=== PATIENT | female | born 1950 | race Two or more races ===

== ENCOUNTER 2019-03-02 15:10 | Emergency (ER) | payer MEDICARE ==
[2019-03-02] MEDS ORDERED: HYDROmorphone 1 MG/ML Syringe IM ONE (15:13)
[2019-03-02] MEDS ORDERED: Diazepam 5 MG Tab PO ONE (15:13)
[2019-03-02] MEDS ORDERED: Ondansetron 4 MG Tab.DIS PO ONE (15:14)
--- NOTE | 2019-03-02 15:15 | EDM.PDOC ---
ED HPI GENERAL MEDICAL PROBLEM - General Chief Complaint: Upper Extremity Injury/Pain Stated Complaint: DISLOCATED SHOULDER Time Seen by Provider: 03/02/19 15:12 Source of Information: Reports: Patient History Limitations: Reports: No Limitations - History of Present Illness INITIAL COMMENTS - FREE TEXT/NARRATIVE: History of present illness: []patient has dislocated her left shoulder 7 times in the last 5 years. She has not followed up with orthopedic surgeon. She moved here from [place] and was reaching for an object today and dislocated prior to arrival. Review of systems: As per history of present illness and below otherwise all systems reviewed and negative. Past medical history: As per history of present illness and as reviewed below otherwise noncontributory. Surgical history: As per history of present illness and as reviewed below otherwise noncontributory. Social history: No reported history of drug or alcohol abuse. Family history: As per history of present illness and as reviewed below otherwise noncontributory. Physical exam: General: Well developed, well nourished in NAD HEENT: Atraumatic, normocephalic, pupils reactive, negative for conjunctival pallor or scleral icterus, mucous membranes moist, throat clear, neck supple, nontender, trachea midline. Lungs: Clear to auscultation, breath sounds equal bilaterally, chest nontender. Heart: S1S2, regular, negative for clicks, rubs, or JVD. Abdomen: NABS, Soft, nondistended, nontender. Negative for masses or hepatosplenomegaly. Negative for costovertebral tenderness. Pelvis: Stable nontender. Genitourinary: Deferred. Rectal: Deferred. Extremities: left shoulder tenderness,NVI, negative for cords or calf pain. Neurovascular unremarkable. Neuro: Awake, alert, oriented. Cranial nerves II through XII unremarkable. Cerebellum unremarkable. Motor and sensory unremarkable throughout. Exam nonfocal. Skin:warm and dry Diagnostics: [id number] dislocation left shoulder Therapeutics: dilaudid, valium, conscious sedation ED Course: stable Impression: recurrent anterior shoulder dislocation left Prescriptions: Plan: Take meds as directed, follow up with your primary care physician, return to ER if symptoms worsen or change. Definitive disposition and diagnosis as appropriate pending reevaluation and review of above. left shoulder Pain Score (Numeric/FACES): 9 - Related Data Allergies Allergy/AdvReac Type Severity Reaction Status Date / Time No Known Allergies Allergy Verified 03/02/19 15:25 Home Meds: Home Meds Acetaminophen/Codeine [Tylenol with Codeine No.3 300MG/30MG] 1 tab PO Q4H PRN [History] Diclofenac Sodium [Voltaren] 75 mg PO BIDMEALS PRN #20 tab.cr 03/02/19 [Rx] Gabapentin [Neurontin] 300 mg PO BID 03/02/19 [History] Levothyroxine [Synthroid] 88 mcg PO ACBREAKFAST 03/02/19 [History] Omeprazole 40 mg PO DAILY 03/02/19 [History] Sucralfate 1 gm PO BEDTIME 03/02/19 [History] carBAMazepine [Carbamazepine ER] 200 mg PO BID 03/02/19 [History] Review of Systems - Review of Systems Review Of Systems: See Below ED EXAM, GENERAL - Physical Exam Exam: See Below Course - Vital Signs Last Recorded V/S: Last Vital Signs Temp 98.0 F 03/02/19 15:10 Pulse 100 03/02/19 15:10 Resp 18 03/02/19 15:10 BP 170/89 H 03/02/19 15:10 Pulse Ox 99 03/02/19 15:10 - Orders/Labs/Meds Orders: Active Orders 24 hr Category Date Time Status Sodium Chloride 0.9% [Saline Flush] Med 03/02/19 16:00 Active 10 ml FLUSH ASDIRECTED PRN Sodium Chloride 0.9% [Saline Flush] Med 03/02/19 16:00 Active 2.5 ml FLUSH ASDIRECTED PRN Saline Lock Insert [OM.PC] Stat Oth 03/02/19 16:00 Ordered Medication Orders Sodium Chloride (Saline Flush) 10 ml FLUSH ASDIRECTED PRN PRN Reason: Keep Vein Open Sodium Chloride (Saline Flush) 2.5 ml FLUSH ASDIRECTED PRN PRN Reason: Keep Vein Open Meds: Medications Generic Name Dose Route Start Last Admin Trade Name Freq PRN Reason Stop Dose Admin Sodium Chloride 10 ml 03/02/19 16:00 Saline Flush FLUSH ASDIRECTED PRN Keep Vein Open Sodium Chloride 2.5 ml 03/02/19 16:00 Saline Flush FLUSH ASDIRECTED PRN Keep Vein Open Discontinued Medications Generic Name Dose Route Start Last Admin Trade Name Freq PRN Reason Stop Dose Admin Diazepam 5 mg 03/02/19 15:13 03/02/19 15:27 Valium. PO 03/02/19 15:14 5 mg ONETIME ONE Administration Hydromorphone HCl 1 mg 03/02/19 15:13 03/02/19 15:26 Dilaudid IM 03/02/19 15:14 1 mg ONETIME ONE Administration Midazolam HCl Confirm 03/02/19 16:25 Versed 1 Mg/Ml Administered 03/02/19 16:26 Dose 2 mg .ROUTE .STK-MED ONE Ondansetron HCl 4 mg 03/02/19 15:14 03/02/19 15:27 Zofran Odt PO 03/02/19 15:15 4 mg ONETIME ONE Administration Propofol Confirm 03/02/19 16:25 Diprivan 20 Ml Administered 03/02/19 16:26 Dose 200 mg .ROUTE .STK-MED ONE Departure - Departure Time of Disposition: 18:21 Disposition: Home, Self-Care 01 Condition: Good Clinical Impression: Recurrent dislocation, left shoulder - Discharge Information *PRESCRIPTION DRUG MONITORING PROGRAM REVIEWED*: Not Applicable *COPY OF PRESCRIPTION DRUG MONITORING REPORT IN PATIENT CHANG: Not Applicable Referrals: PCP,None [Primary Care Provider] - Forms: ED Department Discharge Additional Instructions: The following information is given to patients seen in the emergency department who are being discharged to home. This information is to outline your options for follow-up care. We provide all patients seen in our emergency department with a follow-up referral. The need for follow-up, as well as the timing and circumstances, are variable depending upon the specifics of your emergency department visit. If you don't have a primary care physician on staff, we will provide you with a referral. We always advise you to contact your personal physician following an emergency department visit to inform them of the circumstance of the visit and for follow-up with them and/or the need for any referrals to a consulting specialist. The emergency department will also refer you to a specialist when appropriate. This referral assures that you have the opportunity for follow-up care with a specialist. All of these measure are taken in an effort to provide you with optimal care, which includes your follow-up. Under all circumstances we always encourage you to contact your private physician who remains a resource for coordinating your care. When calling for follow-up care, please make the office aware that this follow-up is from your recent emergency room visit. If for any reason you are refused follow-up, please contact the [facility] Emergency Department at and asked to speak to the emergency department charge nurse. Take meds as directed, follow up with your primary care physician, return to ER if symptoms worsen or change. [facility] [address] [place] [id number] - My Orders Last 24 Hours: My Active Orders 03/02/19 16:00 Sodium Chloride 0.9% [Saline Flush] 10 ml FLUSH ASDIRECTED PRN Sodium Chloride 0.9% [Saline Flush] 2.5 ml FLUSH ASDIRECTED PRN Saline Lock Insert [OM.PC] Stat - Assessment/Plan Last 24 Hours: My Active Orders 03/02/19 16:00 Sodium Chloride 0.9% [Saline Flush] 10 ml FLUSH ASDIRECTED PRN Sodium Chloride 0.9% [Saline Flush] 2.5 ml FLUSH ASDIRECTED PRN Saline Lock Insert [OM.PC] Stat
--- NOTE | 2019-03-02 15:58 | CR ---
EXAM DATE: 03/02/19 PATIENT'S AGE: 68 Left shoulder: Three views left shoulder were obtained. Comparison: No previous study. Anterior dislocation is seen. Cystic change is noted within the glenoid. No additional abnormality is seen other than osteopenia. Impression: 1. Dislocated left shoulder. 2. Mild degenerative change within the glenoid. Diagnostic code #3 Report Signed by Proxy. ADE
[2019-03-02] MEDS ORDERED: Sodium Chloride 0.9% 10 ML Syringe FLUSH PRN (16:00)
[2019-03-02] MEDS ORDERED: Sodium Chloride 0.9% 2.5 ML Syringe FLUSH PRN (16:00)
[2019-03-02] MEDS ORDERED: Midazolam 1 MG/ML 2 ML SDV ONE (16:25)
[2019-03-02] MEDS ORDERED: Propofol 200 MG/20 ML SDV ONE (16:25)
--- NOTE | 2019-03-02 18:04 | CR ---
Indication: Post reduction Technique: Two views of the left shoulder were obtained. Comparison: March 02, 2019. Findings: The current studies dated 1748 hours. The humeral head is seated within the glenoid. Degenerative changes are identified. No fracture is identified. Impression: Post reduction of the left shoulder dislocation. Dictated by Allyson Denis MD @ Mar 02 2019 6:03PM Signed by Dr. Allyson Denis @ Mar 02 2019 6:03PM
--- NOTE | 2019-03-07 13:09 | PCM.PRNOTE ---
- Free Text/Narrative Note: Anes Note Late Entry. Patient is in ER with a dislocated right shoulder. Patient sedated with 30 mg propofol and 1 mg versed. Conscious sedation achieved. reduction tolerated well. Awake after procedure. VS Stable. Time with patient [id number] March 02 2019
== END 2019-03-02 19:10 | disposition home or self-care (01) ==
LOC: MW.ED 15:10
DX: M24.412 Recurrent dislocation, left shoulder (principal); Z79.899 Other long term (current) drug therapy; X58.XXXA Exposure to other specified factors, initial encounter
CPT/HCPCS: 23650; 73030; 96372; 99152; 99284; A9270; J1170; J2250; J2704